=== PATIENT | male | born 1955 | race Caucasian/White ===

== ENCOUNTER → 2019-12-13 13:49 | Outpatient (CLI) | payer OTHER, SELFPAY ==
--- NOTE | 2019-12-13 13:54 | XR_ITS ---
PROCEDURE: XR CERVICAL SPINE 5V CLINICAL INDICATION: CERVICAL DISC DISORDER WITH RADICULOPATHY Pinched nerve on the left COMPARISON: No exams were available for comparison FINDINGS: There is degenerative disc disease at C5-C6 and C6-C7 with anterior osteophytes at C4, C5, C6, and C7. Mild left-sided foraminal narrowing is present at C5-C6. Mild facet arthritic changes are noted from C4-C7. No fracture or dislocation. No lytic or blastic change. IMPRESSION: Cervical spondylosis with degenerative disc disease and facet arthritic change with foraminal narrowing Dictated by: Marcus Acuna MD 12/13/2019 17:38 Electronically signed by Marcus Acuna MD in [facility] 12/13/2019 17:38
--- NOTE | 2019-12-13 13:54 | XR_ITS ---
PROCEDURE: XR CHEST 2V CLINICAL HISTORY: RT LUNG CRACKLES COMPARISON: No exams were available for comparison FINDINGS: The cardiomediastinal silhouette and pulmonary vascularity are within normal limits. The lungs are clear without infiltrates, suspicious nodules, or pleural effusions. No acute bony abnormalities. IMPRESSION: No acute findings. Dictated by: Marcus Acuna MD 12/13/2019 17:39 Electronically signed by Marcus Acuna MD in [facility] 12/13/2019 17:39
== END ==
PROVIDERS: PCP Family Medicine; Visit Provider Family Medicine
DX: R09.89 Other specified symptoms and signs involving the circulatory and respiratory systems (principal); M50.10 Cervical disc disorder with radiculopathy, unspecified cervical region
CPT/HCPCS: 71046; 72050